=== PATIENT | male | born 2000 | race Caucasian/White ===

== ENCOUNTER 2023-07-27 17:46 | Emergency (ER) | payer BC, SELFPAY ==
[2023-07-27 17:55] VITALS: BP 135/112; PULSE 127; RESP 16; TEMP 37.2; O2SAT 100
--- NOTE | 2023-07-27 18:17 | ED.URI ---
HPI - URI/Sore Throat General Chief Complaint: Upper Respiratory Infection Stated Complaint: Shortness of Breath, Sore Throat, Cough Source: patient Mode of arrival: ambulatory Limitations: no limitations History of Present Illness HPI Narrative: 22-year-old male with hx asthma presented for c/o cough, sore throat, and sob with exertion for about one week. He states he was just at an outside UC and was told he tested positive for strep but had already left after being told they could not address his albuterol neb medication. Denies n/v/d/f/c. Related Data Home Medications Medication Instructions Recorded Confirmed albuterol sulfate 90 mcg/actuation 90 mcg inhalation DIRECTED 07/27/23 07/27/23 aerosol inhaler fluticasone propionate 230 1 inh inhalation DIRECTED 07/27/23 07/27/23 mcg-salmeterol 21 mcg/actuation HFA inhaler (Advair HFA) phentermine 15 mg capsule 15 mg DIRECTED 07/27/23 07/27/23 Allergies Allergy/AdvReac Type Severity Reaction Status Date / Time No Known Allergies Allergy Verified 07/27/23 18:02 Review of Systems Review of Systems: CONSTITUTIONAL: reports fever, chills, sweats. EYES: Denies visual changes, redness, or discharge. ENT: Reports sore throat denies rhinorrhea, congestion, or otalgia. CARDIOVASCULAR: Denies chest pain, palpitations, or edema. RESPIRATORY: Reports cough, sob, wheezing. GASTROINTESTINAL: Denies abdominal pain, nausea, vomiting, or diarrhea. SKIN: Denies rash, itching, or wounds. MUSCULOSKELETAL: Denies back pain, joint pain, or myalgia. NEUROLOGIC: Denies headache, numbness, tingling, or weakness. All systems reviewed & are unremarkable except as noted in HPI and below PMFSH Past Medical History Medical History (Updated 07/27/23 @ 19:09 by Xi Tomlin, BOBBI) Asthma Comments At time of signature, I have reviewed and agree with nursing past medical, surgical, social and family history unless otherwise noted. Please see nursing chart for further information. There is no relevant family history pertinent to the presenting complaint Exam Narrative: GENERAL: mildly ill-appearing, in no acute distress. EYES: EOMI. No redness or drainage. Conjunctivae normal. ENT: Mucous membranes pink and moist. No rhinorrhea. TMs normal bilaterally. Throat normal. Uvula midline. NECK: Normal AROM. Supple. CHEST: No respiratory distress. Exp Wheezing to all [place]. Harsh psych arnp cough HEART: Regular rate and rhythm. No murmur appreciated. ABDOMEN: Soft, nontender, nondistended, normal active bowel sounds. EXTREMITIES: Normal range of motion. No edema. SKIN: Warm, dry, no rash. Capillary refill normal. Normal skin turgor. NEURO: Alert and oriented x3. Gait steady. Course Course Emergency Course: Patient is aware of diagnosis, understands and agrees to treatment plan. Anticipatory guidance given. Patient agrees to follow-up as directed and is aware of reasons to seek care at the emergency department. Portions of this record may have been created with voice recognition software Level of Care: Express Care Visit Vital Signs Vital signs: Vital Signs Temperature 99 F 07/27/23 17:55 Pulse Rate 127 H 07/27/23 17:55 Respiratory Rate 16 07/27/23 17:55 Blood Pressure 135/112 H 07/27/23 17:55 Pulse Oximetry 100 07/27/23 17:55 Temperature 99 F 07/27/23 17:55 Pulse Rate 120 H 07/27/23 18:54 Respiratory Rate 20 07/27/23 18:46 Blood Pressure 139/87 07/27/23 18:54 Pulse Oximetry 98 07/27/23 18:46 MDM - URI/Sore Throat MDM Narrative Medical decision making narrative: Reassessed after albuterol neb, significant improvement in lung sounds. Patient reports significant improvement as well. POS Strep result reviewed with patient. Discussed physical exam findings. Advised supportive measures and signs/symptoms to go to the ER. Pt is appropriate for outpt treatment and f/u. Differential Diagnosis Differential diagnosi
[2023-07-27 18:32] VITALS: PULSE 126; RESP 20; O2SAT 97
[2023-07-27] MEDS: ALBUTEROL SULFATE NEB 2.5 MG/3 ML INH INHALATION (18:32)
[2023-07-27 18:46] VITALS: PULSE 136; RESP 20; O2SAT 98
[2023-07-27 18:54] VITALS: BP 139/87; PULSE 120
== END 2023-07-27 19:18 | disposition home or self-care (01) ==
PROVIDERS: Emergency Provider Nurse Practitioner Family
DX: J02.0 Streptococcal pharyngitis (principal); J40 Bronchitis, not specified as acute or chronic; J45.909 Unspecified asthma, uncomplicated
CPT/HCPCS: 87880; 94640; 99213; G0463